=== PATIENT | male | born 1995 | race Caucasian/White ===

== ENCOUNTER 2017-01-13 23:32 | Emergency (ER) | payer BC ==
[~2017-01-13] VITALS: Ht 180.3 cm; Wt 122.5 kg
[2017-01-13 23:32] VITALS: BP_SYST 140
--- NOTE | 2017-01-14 00:19 | NUR ---
Pt ambulatory, a/o x 4, c/o epigastric pain today, 5 to 6/10 PS, that is resolved with vomiting. Reported pain to right chest, non radiating, for a month. Pt has no treatment for symptoms. Pt denied cough or any recent respitratory problem. Pt afebrile, no chills, no short of breath, abdomen soft, non tender, with active bowel sounds. Pt was made comfortable in bed, vital signd within normal limits.
--- NOTE | 2017-01-14 00:19 | NUR ---
Patient to ER bed 6 to gown for evaluation. Side rails up.
--- NOTE | 2017-01-14 00:30 | NUR ---
ER Dr. De Los Santos at bedside examining patient.
[2017-01-14 01:00] VITALS: BP_SYST 142
--- NOTE | 2017-01-14 01:00 | NUR ---
Patient given written and verbal discharge instructions and verbalizes understanding. ER MD Dr. De Los Santos discussed with patient the results and treatment provided. Patient in stable condition. ID arm band removed. Rx of Motrin 800 mg given. Patient educated on pain management and to follow up with PMD. Pain Scale 5/10. Opportunity for questions provided and answered.
== END 2017-01-14 01:00 | disposition home or self-care (01) ==
LOC: SED 23:32
DX: R07.9 Chest pain, unspecified (principal); R10.13 Epigastric pain; R11.10 Vomiting, unspecified
CPT/HCPCS: 99283

== ENCOUNTER 2018-10-01 18:14 | Emergency (ER) | payer BC ==
[~2018-10-01] VITALS: Ht 182.9 cm; Wt 115.7 kg
[2018-10-01 18:30] VITALS: BP_SYST 150
--- NOTE | 2018-10-01 18:33 | NUR ---
Patient triaged and placed in waiting room. VSS and patient appears in no acute distress at this time. Accompanied by brother, awaiting available bed, and MD notified of need for MSE.
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
--- NOTE | 2018-10-01 19:09 | NUR ---
Patient to ER bed 05 to gown for evaluation. Side rails up. Report given to Nicho.
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
--- NOTE | 2018-10-01 19:45 | NUR ---
ER Dr. De Los Santos at bedside examining patient.
[2018-10-01 20:28] VITALS: BP_SYST 150
== END 2018-10-01 19:45 | disposition home or self-care (01) ==
LOC: SED 18:14
DX: S00.83XA Contusion of other part of head, initial encounter (principal); R03.0 Elevated blood-pressure reading, without diagnosis of hypertension; Y04.0XXA Assault by unarmed brawl or fight, initial encounter; Y93.89 Activity, other specified; Y92.89 Other specified places as the place of occurrence of the external cause; Y99.8 Other external cause status
CPT/HCPCS: 99283

== ENCOUNTER 2022-09-19 11:41 | Emergency (ER) | payer BC ==
[~2022-09-19] VITALS: Ht 182.9 cm; Wt 127.0 kg
[2022-09-19 11:42] VITALS: BP_SYST 159
--- NOTE | 2022-09-19 11:45 | NUR ---
Patient triaged and placed in waiting room. VSS and patient appears in no acute distress at this time. Accompanied by SELF, awaiting available bed, and MD notified of need for MSE.
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
[2022-09-19] MEDS ORDERED: ACETAMINOPHEN 500 MG TABLET PO ONE (13:30)
[2022-09-19] MEDS ORDERED: LIDOCAINE PATCH 5% 1 EA TP ONE (13:30)
[2022-09-19] MEDS ORDERED: KETOROLAC TROMETHAMINE 30 MG VIAL IM ONE (13:30)
[2022-09-19] MEDS ORDERED: CYCL10TA24 PO (13:55)
[2022-09-19] MEDS ORDERED: NAPR-690 PO (13:55)
[2022-09-19] MEDS ORDERED: ACET-2634 PO (13:55)
--- NOTE | 2022-09-19 14:45 | NUR ---
PT STATES HIS PAIN LEVEL IS WAY DOWN, ABLE TO STAND WITHOUT DIFFICULTY.
--- NOTE | 2022-09-19 15:31 | NUR ---
Patient given written and verbal discharge instructions and verbalizes understanding. ER MD discussed with patient the results and treatment provided. Patient in stable condition. ID arm band removed. Rx of FLEXERIL, TYLENOL XTRA STRENGTH, NAPROXEN given. Patient educated on pain management and to follow up with PMD. Pain Scale 1/10. Opportunity for questions provided and answered. Medication side effect fact sheet provided.
== END 2022-09-19 15:31 | disposition home or self-care (01) ==
LOC: SED 11:41
DX: M54.50 Low back pain, unspecified (principal); F12.90 Cannabis use, unspecified, uncomplicated; Z79.899 Other long term (current) drug therapy
CPT/HCPCS: 99283; 96372; J1885